=== PATIENT | female | born 1990 | race Two or more races ===

== ENCOUNTER 2022-05-28 07:27 | Emergency (ER) | payer OTHER ==
[~2022-05-28] VITALS: Ht 154.9 cm; Wt 46.3 kg
[2022-05-28 08:28] VITALS: BP 108/77
[2022-05-28] MEDS ORDERED: ACET-1080 PO (09:58)
[2022-05-28] MEDS ORDERED: ACETAMINOPHEN 325 MG TAB PO ONE (10:00)
== END 2022-05-28 10:08 | disposition home or self-care (01) ==
LOC: ER 07:27
DX: S39.012A Strain of muscle, fascia and tendon of lower back, initial encounter (principal); O26.892 Other specified pregnancy related conditions, second trimester; Z79.899 Other long term (current) drug therapy; Z3A.16 16 weeks gestation of pregnancy; X58.XXXA Exposure to other specified factors, initial encounter; Y93.89 Activity, other specified; Y92.89 Other specified places as the place of occurrence of the external cause; Y99.8 Other external cause status
CPT/HCPCS: 76805

== ENCOUNTER 2024-12-05 17:30 | Emergency (ER) | payer OTHER ==
[~2024-12-05] VITALS: Ht 154.9 cm; Wt 50.8 kg
[~2024-12-05 17:30] MED LIST: ACET-1080 PO
[2024-12-05 18:06] VITALS: BP 114/83; PULSE 74; RESP 16; TEMP 98.4; O2SAT 98
--- NOTE | 2024-12-05 18:11 | ED.PDOC ---
GI ASSESSMENT HPI Comments 34y F who presents to the ED for chief complaint of abdominal pain. Pt states she has been having RLQ abdominal pain for the past 4 days. Pt states the pain is constant, non-radiating, with no associated exacerbating or relieving factors. Pt states the area around the redness and swelling has increased over the past 4 days and appears like a abscess in nature. Pt otherwise denies fever, chills, dysuria, nausea, vomiting, cough, chest pain or shortness of breath. Pt otherwise denies any other symptoms at this time. Chief Complaint: Pelvic Pain Time Seen by MD: 18:06 Reviewed Notes: Nurses Notes, Medications Allergies: Coded Allergies: NO KNOWN ALLERGIES (Unverified , 05/28/22) Home Meds Active Scripts Sulfamethoxazole W/Trimethopri (Bactrim Ds Tablet) 1 Tab Tb, 1 TAB PO BID for 10 Days, #20 TAB Prov:GARY MICHAUD MD 12/05/24 Acetaminophen (Tylenol 8 Hour Arthritis) 650 Mg Tab, 650 MG PO TID, #30 TAB Prov:ROLAND MASTERS 05/28/22 Information Source: Patient, Significant Other Mode of Arrival: Ambulatory Brought in by: significant other Timing: Days Duration: Since onset Prehospital treatment: None Quality: None Vomitus: None Stool: Normal Severity: Moderate Recent: None Recent Hx of: None Pain Location: RLQ Modifying Factors: Nothing Associated sign and symptoms: Abdominal Pain Past Medical History PAST MEDICAL HISTORY: Denies Surgical History: Denies all surgeries SENIOR ANIMAL TRAINER History: No Pertinent SENIOR ANIMAL TRAINER History Family History Family History: Reviewed,noncontributory to illness Social History Smoker: Non-Smoker Alcohol: Occasionally Drugs: Denies Drug Use Lives In: Home Constitutional: denies: chills, diaphoresis, fatigue, fever, malaise, sweats, weakness, others EENTM: denies: blurred vision, double vision, ear bleeding, ear discharge, ear drainage, ear pain, ear ringing, eye pain, eye redness, hearing loss, mouth pain, mouth swelling, nasal discharge, nose bleeding, nose congestion, nose pain, photophobia, tearing, throat pain, throat swelling, voice changes, others Respiratory: denies: cough, hemoptysis, orthopnea, SOB at rest, shortness of breath, SOB with excertion, stridor, wheezing, others Cardiovascular: denies: chest pain, dizzy spells, diaphoresis, Dyspnea on exertion, edema, irregular heart beat, left arm pain, lightheadedness, palpitations, PND, syncope, others Gastrointestinal: reports: abdominal pain; denies: abdomen distended, blood streaked bowels, constipated, diarrhea, dysphagia, difficulty swallowing, hematemesis, melena, nausea, poor appetite, poor fluid intake, rectal bleeding, rectal pain, vomiting, others Genitourinary: denies: abnormal vagina bleeding, burning, dyspareunia, dysuria, flank pain, frequency, hematuria, incontinence, pain, , vagina discharge, urgency, others Neurological: denies: dizziness, fainting, headache, left sided numbness, left sided weakness, numbness, paresthesia, pre-existing deficit, right sided numbness, right sided weakness, seizure, speech problems, tingling, tremors, weakness, others Musculoskeletal: denies: back pain, gout, joint pain, joint swelling, muscle pain, muscle stiffness, neck pain, others Integumetry: denies: bruises, change in color, change in hair/nails, dryness, laceration, lesions, lumps, rash, wounds, others Allergic/Immunocompromised: denies: Difficulty Healing, Frequent Infections, Hives, Itching, others Hematologic/Lymphatic: denies: anemia, blood clots, easy bleeding, easy bruising, swollen glands, others Endocrine: denies: excessive hunger, excessive sweating, excessive thirst, excessive urination, flushing, intolerance to cold, intolerance to heat, unexplained weight gain, unexplained weight loss, others Psychiatric: denies: anxiety, bipolar disorder, depression, hopeless, panic disorder, schizophrenia, sleepless, suicidal, others All Other Systems: Reviewed and Negative Physical Exam General Appearance: Mild Distress HEENT: Normal ENT Inspection, Pharynx Normal, TMs Normal Neck: Full Range of Motion, Non-Tender, Normal, Normal Inspection Respiratory: Chest Non-Tender, Lungs Clear, No Accessory Muscle Use, No Respiratory Distress, Normal Breath Sounds Cardiovascular: No Edema, No JVD, No Murmur, No Gallop, Normal Peripheral Pulses, Regular Rate/Rhythm Breast Exam: Deferred Gastrointestinal: No Organomegaly, Non Tender, No Pulsatile Mass, Normal Bowel Sounds, Soft Genitalia: Deferred Pelvic: Deferred Rectal: Deferred Extremities: No calf tenderness, Normal capillary refill, Normal inspection, Normal range of motion, Non-tender, No pedal edema Musculoskeletal : Apperance: Normal Neurologic: Alert, vp talent management II-XII nml as Tested, No Motor Deficits, Normal Affect, Normal Mood, No Sensory Deficits Cerebellar Function: Normal Reflexes: Normal Skin: Dry, Normal Color, Rash (Redness to the right lower abdominal area with raised fluctuance) Lymphatic: No Adenopathy Was a procedure done? Was a procedure done?: Yes Sedation Sedation?: No Incision and Drainage Incision and Drainage: Abscess Location Right-sided abdominal redness that is raised and tender Anesthetic: Lidocaine Preparation: Betadine Incision and Wound: Pus, Amount (Small amounts), Packed (Iodoform) Informed consent obtained: Yes Risks/benefits/alt described: Yes GI differential Dx Differential Diagnosis: Hernia, Trauma intraabdominal, Electrolyte Imbalance Other Differential Diagnosis abscess, bacteremia, cellulitis, X-Ray, Labs, Meds, VS Vital Signs Date Time Temp Pulse Resp B/P (MAP) Pulse Ox O2 Delivery O2 Flow Rate FiO2 12/05/24 18:06 74 16 98 Room Air* 0 21 12/05/24 18:06 98.4 74 16 114/83 (93) 98 98.4 12/05/24 17:43 100.0 76 16 107/76 (86) 99 The patient tolerated the procedure well The patient was given Bactrim for the infection The patient tolerated the procedure well The patient had a dressing placed. Time of 1ST Reevaluation: 18:40 Reevaluation 1ST: Unchanged Patient Education/Counseling: Diagnosis, Treatment, Prognosis, Need For Follow Up Family Education/Counseling: Diagnosis, Treatment, Prognosis, Need For Follow Up Departure 1 Departure Time of Disposition: 19:32 Impression: Primary Impression: Abscess Disposition: 01 HOME / SELF CARE / HOMELESS Condition: Fair e-Prescriptions Sulfamethoxazole W/Trimethopri (Bactrim Ds Tablet) 1 Tab Tb 1 TAB PO BID for 10 Days, #20 TAB Prov: GARY MICHAUD MD 12/05/24 Discharged With: Self Critical Care Note Critical Care Time?: No Stability Stability form required: No Heart Score Heart Score: Heart Score Response (Comments) Value History N/A 0 EKG N/A 0 Age N/A 0 Risk Factors N/A 0 Troponin N/A 0 Total 0 I personally scribed for GARY MICHAUD MD ([email or web address]) on 12/05/24 at 18:11. Electronically submitted by Kamala Fry ([email or web address]). GARY MICHAUD MD Dec 05, 2024 18:11
[2024-12-05] MEDS: LIDOCAINE 1% HCL (LOCAL ANESTH.) INJ 20ML MDV IJ ONE (18:26)
[2024-12-05] MEDS: LIDOCAINE 1% (LOCAL ANESTH.) PF 5ml SDV ID ONE (18:26)
[2024-12-05] MEDS: LIDOCAINE 1% HCL (LOCAL ANESTH.) INJ 20ML MDV ONE (18:26)
[2024-12-05] MEDS ORDERED: BACDST PO (19:31)
== END 2024-12-05 19:44 | disposition home or self-care (01) ==
LOC: ER 17:30
DX: K65.1 Peritoneal abscess (principal)
CPT/HCPCS: 10060; 99283; J2003